=== PATIENT | female | born 1965 | race Caucasian/White ===

== ENCOUNTER 2020-04-04 06:33 | Inpatient (IN) | payer OTHER ==
[~2020-04-04] VITALS: Ht 162.6 cm; Wt 83.0 kg
[2020-04-04 07:08] VITALS: BP 148/94
[2020-04-04] MEDS ORDERED: PLAVIX 75 MG TA75 MG PO (07:29)
[2020-04-04] MEDS ORDERED: ASA81BEC PO (07:29)
[2020-04-04] MEDS ORDERED: FISH OIL 1,001000 M2 PO (07:30)
[2020-04-04] MEDS ORDERED: KLOR-CON 10 ER10 MEQ PO (07:30)
[2020-04-04] MEDS ORDERED: MAGNESIUM250 M1 PO (07:30)
[2020-04-04] MEDS ORDERED: VITAMIN D310 MC2 PO (07:31)
[2020-04-04 07:41] LABS: HEMATOCRIT 43.9 % (37.0-47.0); HEMOGLOBIN 14.2 gm/dL (12.0-15.0); MCH 28.4 pg (26.0-34.0); MCHC 32.4 g/dL (28.0-37.0); MCV 87.7 fL (80.0-100.0); RBC 5.01 mil/uL (4.20-5.00); RDW 14.1 % (10.5-14.5); WBC 5.3 thou/uL (4.0-11.0)
[2020-04-04 07:48] LABS: CALCIUM 9.8 mg/dL (8.5-10.1); CREATININE 0.8 mg/dL (0.6-1.0); POTASSIUM 4.3 mmol/L (3.5-5.1)
[2020-04-04 10:32] LABS: CHOLESTEROL 265 mg/dL (<200); HDL CHOLESTEROL 69 mg/dL (>40); LDL CHOLESTEROL 184 mg/dL (<100); TC:HDL 3.8 Ratio (Not establshd); TRIGLYCERIDE 60 mg/dL (<150); VLDL 12 mg/dL (<40)
--- NOTE | 2020-04-04 10:57 | 2DMMODE ---
[facility] [place] [address] 2 D/M-MODE ECHOCARDIOGRAM Name: KEYSHAWN MADSEN Room #: REG ZOË BakerShanna#: [id number] Admission: 04/04/20 Attend Phys: Eros Canchola MD, Discharge: Date of : 61 Report #: [id number] THIS REPORT FOR: cc: Roland Rodriguez James DO Lammoglia, Francisco J. MD ~ APPROVED REPORT Study performed: 04/04/2020 10:27:05 EXAM: Comprehensive 2D, Doppler, and color-flow Echocardiogram Patient Location: CV Holding Status: routine BSA: 1.88 HR: 70 bpm BP: 148/94 mmHg Rhythm: NSR Other Information Study Quality: Adequate/flat on back. Technically limited study due to inability to position patient. Indications Pre-Op CABG. Hx: CVA, PVD, HTN, HLP, Tob. 2D Dimensions RVDd: 29.38 mm IVSd: 13.00 (7-11mm) LVOT Diam: 18.85 (18-24mm) LVDd: 32.42 mm PWd: 9.40 (7-11mm) LVDs: 24.84 (25-40mm) Volumes Left Atrial Volume (Systole) Single Plane 4CH: 32.20 mL Single Plane 2CH: 38.43 mL LA ESV Index: 20.00 mL/m2 Aortic Valve AoV Peak Satya.: 1.23 m/s AO Peak Gr.: 6.07 mmHg LVOT Max P.48 mmHg LVOT Max V: 0.93 m/s [facility] [address] [address] 2 D/M-MODE ECHOCARDIOGRAM Name: KEYSHAWN MADSEN Room #: REG Shelley#: [id number] Admission: 04/04/20 Attend Phys: Eros Canchola, Discharge: Date of : 61 Report #: [id number] KRAIG Vmax: 2.11 cm2 Mitral Valve E/A Ratio: 1.1 MV Decel. Time: 140.51 ms MV E Max Satya.: 1.08 m/s MV A Satya.: 0.99 m/s MV PHT: 40.75 ms IVRT: 76.12 ms Pulmonary Valve PV Peak Satya.: 0.67 m/s PV Peak Gr.: 1.81 mmHg Pulmonary Vein P Vein S: 0.41 m/s P Vein D: 0.30 m/s P Vein S/D Ratio: 1.37 Tricuspid Valve RAP Estimate: 5.00 mmHg Left Ventricle The left ventricle is normal size. Mild basal septal hypertrophy is present. Left ventricular systolic function is normal. LVEF is 55%. Moderate diastolic dysfunction is present. Right Ventricle The right ventricle is normal size. The right ventricular systolic function is normal. Atria The left atrium size is normal. The right atrium size is normal. Aortic Valve Aortic valve leaflets are mildly calcified. No aortic regurgitation is present. There is no aortic valvular stenosis. Mitral Valve The mitral valve is normal in structure. Mild mitral regurgitation. No evidence of mitral valve stenosis. Tricuspid Valve The tricuspid valve is normal in structure. There is no tricuspid valve regurgitation noted. Unable to assess PA pressure. [facility] [address] [place] [address] 2 D/M-MODE ECHOCARDIOGRAM Name: KEYSHAWN MADSEN Room #: [facility] Shelley#: [id number] Admission: 04/04/20 Attend Phys: Eros Canchola, Discharge: Date of : 61 Report #: [id number] Pulmonic Valve Pulmonic valve is not well visualized. Great Vessels The aortic root is normal in size. IVC is normal in size and collapses >50% with inspiration. Pericardium There is no pericardial effusion. <Conclusion> The left ventricle is normal size. LVEF is 55%. Aortic valve leaflets are mildly calcified. The mitral valve is normal in structure. Mild mitral regurgitation. The tricuspid valve is normal in structure. Pulmonic valve is not well visualized. There is no pericardial effusion. <ELECTRONICALLY SIGNED> By: Gerard Duffy MD 04/04/20 1056 1056 1056 Gerard Duffy MD /INF
[2020-04-04 11:05] VITALS: BP 146/96
[2020-04-04 16:25] LABS: ABSOLUTE NEUTROPHILS 3.6 thou/uL (1.4-8.2); BASOPHILS 0.4 % (0.0-2.0); EOSINOPHILS 1.8 % (0.0-3.0); HEMATOCRIT 45.2 % (37.0-47.0); HEMOGLOBIN 14.8 gm/dL (12.0-15.0); MCH 28.5 pg (26.0-34.0); MCHC 32.7 g/dL (28.0-37.0); MCV 87.3 fL (80.0-100.0); MONOCYTES 9.4 % (1.0-8.0); PLATELET COUNT 219 thou/uL (150-400); POLYS 58.4 % (36.0-66.0); RBC 5.18 mil/uL (4.20-5.00); WBC 6.1 thou/uL (4.0-11.0)
[2020-04-04 16:32] LABS: CALCIUM 9.8 mg/dL (8.5-10.1); CREATININE 0.7 mg/dL (0.6-1.0); POTASSIUM 4.3 mmol/L (3.5-5.1)
[2020-04-04 16:38] LABS: TOTAL BILIRUBIN 0.5 mg/dL (0.2-1.0); TOTAL PROTEIN 7.6 g/dL (6.4-8.2)
[2020-04-04 16:49] LABS: APTT 24.8 Seconds (24.5-32.8); PROTIME 10.2 Seconds (9.3-11.4)
--- NOTE | 2020-04-04 18:12 | NUR ---
10:00 ON UNIT POST CATH PROCEDURE, ADMISSION PAPERWORK COMPLETED AND LOGN DUSCUSSION ON LAYING FLAT UNTIL OFF BEDREST AT 12:30 THIS AFTERNNON. PT. DENIES ANY CHEST PAIN, NO SOB. RIGHT LEG IS WARM AND PINK, NO MOTTLING NOTED BILATERALLY. PEDAL PULSES ARE 2+ ON BOTH LOWER EXTREMETIES. CANDI AT BEDSIDE, MANY QUESITONS ANSWERED PERTAINING TO CABG PROCEDURE, EXPECTATIONS AND PRE-OP ORDERS.
--- NOTE | 2020-04-04 18:16 | NUR ---
12:30 OFF BEDREST AT THIS TIME. DENIES ANY DISCOMFORT. RIGHT GROIN SITE IS C,D,I , NO HEMATOMA. SOFT TISSUE AT SITE AND NO OOZING ON GUAZE. VERY PLEASANT DEMEANOR, CLAMER FROM WHAT WAS REPORTED IN PRE-OP WAS GIVEN VALIUM FOR ANXXIETY. NSR, NO ECTOPY. DENIES SOB, ON ROOM AIR.
--- NOTE | 2020-04-04 18:18 | NUR ---
14:00 OFF UNIT FOR ELOY SOUND PROCEDURE AT THIS TIME, IN ROOM. MULTIPLE LAB DRAWS AND PRE-OP CONVERSATIONS PRIOR. NSR, NO ECTOPY.
[2020-04-04 20:30] VITALS: BP 129/88
[2020-04-05 05:00] VITALS: BP 133/84
--- NOTE | 2020-04-05 05:07 | NUR ---
ASSUMED CARE OF THE PATIENT AT 1900; AOX4/BATHROOM PRIVILEGES; SR/SB ON THE MONITOR; VSS/ASSESSMENTS CHARTED; SLEEPING MED REQUESTED AND ADMINISTERED PER PROVIDER ORDER; PLAN IS FOR PATIENT TO REMAIN FOR OBSERVATION AND SCHEDULED OPEN HEART SX FOR 04/08/20; WILL CONTINUE TO MONITOR.
[2020-04-05 07:25] VITALS: BP 149/95
[2020-04-05 11:15] VITALS: BP 142/96
--- NOTE | 2020-04-05 12:43 | HC ---
[facility] [place] [address] CONSULTATION Name: KEYSHAWN MADSEN Room #: 200-I [facility] ZOË PerryShannaDulce MariaShanna#: [id number] Admission: 04/04/20 Attend Phys: Eros Canchola MD, Discharge: Date of : 61 Report #: [id number] THIS REPORT FOR: cc: Roland Rodriguez James DO Forman, John M. MD ~ DATE OF SERVICE: 04/04/2020 We were asked by Dr. Canchola to see the patient. HISTORY OF PRESENT ILLNESS: The patient is a 54-year-old with coronary artery disease. 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 The patient was found to have important carotid artery disease at the time and had a carotid artery stent at [facility]. The patient was started on Plavix. The peripheral vascular disease led to a nuclear stress test and this was done by Dr. Davies at [facility] on 03/21/2020. Myocardial perfusion imaging showed a moderate-sized reversible defect in the proximal to distal inferior wall and septum extending to the apex with no evidence of prior myocardial infarction. Left ventricular systolic function was estimated to be 67% by the study. Cardiac catheterization was done today and this shows severe 3-vessel coronary artery disease including 90% left main, 90% LAD, circumflex disease of 90%, and right coronary occlusion. Mild hypokinetic function was noted on the ventriculogram. PAST MEDICAL HISTORY: Significant for dyslipidemia and hypertension. The patient denies diabetes mellitus. FAMILY HISTORY: Positive for coronary artery disease. Interestingly, I performed bypass surgery on the patient's [id number] (the patient's 's father). SOCIAL HISTORY: Positive for tobacco use. The patient is a former smoker who started at age 16. REVIEW OF SYSTEMS: GENERAL: The patient denies fever, chills, weight change. 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 HEENT: Denies headache, hearing changes, sinus problems. RESPIRATORY: Denies specific shortness of breath or cough. CARDIAC: Exercise is limited. The patient has a low exercise tolerance, but this is not new per se. Denies angina or palpitations. GASTROINTESTINAL: Denies nausea, vomiting, blood in stool. GENITOURINARY: Denies urgency, frequency, blood in urine. [facility] [address] [place] [address] CONSULTATION Name: KEYSHAWN MADSEN Room #: 200-I [facility] ZOË Rosa#: [id number] Admission: 04/04/20 Attend Phys: Eros Canchola MD, Discharge: Date of : 61 Report #: [id number] MUSCULOSKELETAL: Denies bone or joint pain. SKIN: Denies rash or infection. NEUROLOGIC: We note the stroke with loss of vision, but denies other motor or sensory dysfunction. ENDOCRINE: Denies goiter or tremor. HEMATOLOGIC: Denies bruisability or bleeding. MEDICATIONS: The patient takes aspirin, Plavix, potassium, vitamin D, fish oil. ALLERGIES: None known. PHYSICAL EXAMINATION: CONSTITUTIONAL: The patient is lying in bed post-cardiac cath, seems comfortable. VITAL SIGNS: Heart rate 70, respiratory rate 19, blood pressure 148/94, temperature 97.7, O2 sat 98% on room air. HEENT: No scleral icterus, no arcus. NECK: No mass. I hear no bruit. CHEST: Clear to auscultation. HEART: Rhythm regular. No murmurs audible. ABDOMEN: Soft, no mass. EXTREMITIES: No clubbing, cyanosis or edema, 2+ right popliteal and dorsalis pedis pulse, I do not feel left popliteal or dorsalis pedis pulses. SKIN: No rash or infection. MUSCULOSKELETAL: No bone or joint asymmetry or deformity. NEUROLOGIC: No motor or sensory dysfunction. PSYCHIATRIC: Shows insight into problem and is oriented x 3 and emotion is appropriate. I reviewed the cardiac anatomy with the patient in view of her presentation. We have recommended coronary artery bypass surgery for the multiplicity and location of blockages. Risks in details, options and alternatives were discussed. These include, but are not limited to bleeding, infection, anesthesia risks, heart and lung problems, stroke and . The patient understands all of this and wishes to proceed. We will try to arrange surgery as an inpatient. Plavix will be stopped and we will check for P2Y12 and discuss starting IV heparin with Dr. Canchola. We will also do the COVID and MRSA testing. Thank you for the consult. <ELECTRONICALLY SIGNED> By: Raulito Samuels MD 04/05/20 1243 1032 1300 Raulito Samuels MD /nt
--- NOTE | 2020-04-05 12:59 | CATHLAB ---
[facility] [place] [address] INVASIVE PROCEDURE REPORT Name: KEYSHAWN MADSEN Room #: 200-I REG ZOË Rosa#: [id number] Admission: 04/04/20 Attend Phys: Eros Canchola MD, Discharge: Date of : 61 Report #: [id number] THIS REPORT FOR: cc: Roland Rodriguez James DO Mancuso, Gerald M. MD [facility] ~ APPROVED REPORT Study performed: 04/04/2020 07:54:46 Patient Details Patient Status: Out-Patient Room #: The patient is a 54 year-old female Event Personnel Eros Canchola Health Technician, Rosa Lizama RN RN, Jacques Tamayo RTR ScrubJarett Sherra RTR Monitor Procedures Performed Art Access - R femoral artery* Left Heart Cath w/or w/o Coronaries [id number] [facility] Aortogram Abdominal Peripheral Angio 382721 Renal Bilateral Peripheral Angiography 0523365 CVRENALBIL 00076 Initial Mod Sed Same Phys/QHP Gr5y 377974 38500 Mod Sed Same Phys/QHP Ea 431710 Hemostasis w/ Mynx Indication Chest pain Procedure Narrative The Right Groin^ was infiltrated with 1% Lidocaine subcutaneous anesthesia. A PINNACLE 6FR Sheath #[id number] sheath was inserted into the RFA^. Coronary angiography was performed using coronary diagnostic catheters. The right coronary system was accessed and visualized with a JR4 catheter. The left coronary system was accessed and visualized with a JL4 catheter. The left ventricle was accessed and visualized with a PIGTAIL catheter. Left ventriculogram was performed in 30 degree projection. An aortogram of the abdominal aorta was performed. Pre-demployment femoral angiogram was performed . Closure device was deployed with a 6 Fr MYNXGRIP 6/7F #[id number]. The patient tolerated the procedure well and there were no complications associated with the procedure. There was no hematoma. Intraoperative Conscious Sedation Sedation start time: 911 Case end Time: 942 [facility] [address] [place] [address] INVASIVE PROCEDURE REPORT Name: KEYSHAWN MADSEN Room #: 200-I [facility]..#: [id number] Admission: 04/04/20 Attend Phys: Eros Canchola, Discharge: Date of : 61 Report #: [id number] Fentanyl 50 mcg Versed 1 mg Fluoro Time: 599.00 minutes Dose: DAP 4845.00 cGycm2 599 mGy Contrast Type and Amount: Omnipaque 125 ml Hemodynamics The aortic pressure is 147/76 mmHg with a mean of 107 mmHg. The left ventricular pressure is 155/8 mmHg with a mean of mmHg. The left ventricular end diastolic pressure is 19 mmHg. Conclusion #1. High-grade 90% distal left main lesion at the bifurcation of LAD and circumflex. 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 Preserved distal two thirds of this vessel which wraps the apex. Proximal calcification also noted. Diagonal branch is moderately large and also free of disease after this takeoff. #3 circumflex OM high rising ramus branch long 80% lesion moderate area of distribution and then a smaller circumflex which high-grade proximal disease. #4 totaled mid RCA lesion there is extensive left to right collateralization of the PDA. This was anatomically dominant vessel. #5 selective left renal artery injection mild irregularity 20% #6 selective right renal artery has an eccentric lesion in the 70 to 80% range with a 40 mm gradient upon pullback. Will follow this vessel noninvasively and also for clinical evidence of labile hypertension and/or renal insufficiency. #7 normal left ventricular size there is subtle anterior lateral wall leg EF is 50% range. No akinetic segments are noted. Recommendations and plan: Continue aggressive risk factor modification. Patient will transfer to CCU stable pain-free. Will need cardiovascular surgery consult for revascularization. High-grade complex anatomy as noted above. <ELECTRONICALLY SIGNED> By: Eros Canchola MD, FACC 04/05/20 1259 Eros Canchola MD, FACC /INF
[2020-04-05 14:17] LABS: URINE BILIRUBIN NEGATIVE (Negative); URINE BLOOD NEGATIVE (Negative); URINE CLARITY CLEAR; URINE COLOR YELLOW; URINE GLUCOSE-RANDOM* NEGATIVE (Negative); URINE KETONES NEGATIVE (Negative); URINE LEUKOCYTES-REFLEX NEGATIVE (Negative); URINE NITRITE-REFLEX NEGATIVE (Negative); URINE PROTEIN (DIPSTICK) NEGATIVE (Negative); URINE SPECIFIC GRAVITY 1.025 (1.005-1.035); URINE UROBILINOGEN 0.2 E.U./dl (0.2-1.0)
[2020-04-05 15:40] VITALS: BP 128/87
--- NOTE | 2020-04-05 18:21 | NUR ---
PT'S AT SIDE MAJORITY OF VISITING HOURS. DISCUSSED UPCOMING SURGERY, PT VOICED UNDERSTANDING AND SIGNED CONSENTS, WILL DO MRSA AND COVID TESTS TOMORROW SO THEY WILL BE DONE IN 48 HR RANGE BEFORE SURGERY. PT DENIED PAIN ALL DAY, TOOK OWN SHOWER, HAD A BM, WILL MONITOR
[2020-04-05 19:40] VITALS: BP 121/81
[2020-04-06] VITALS (7 sets, daily range): BP systolic 107–149; BP diastolic 50–88
--- NOTE | 2020-04-06 10:41 | NUR ---
PT UP AND RESTING IN CHAIR, DR SMITH IN TO SEE HER EARLIER, COVID AND MRSA SWABS SENT, C/O BACK AND LEG PAIN FROM LYING UNCOMFORTABLY IN THE BED ALL NIGHT. DR HENDERSON GAVE ORDERS FOR PRN PAIN MED AND SLEEPING PILL. PT TOOK PAIN MED, WILL MONITOR.
--- NOTE | 2020-04-06 14:42 | NUR ---
PT'S COVID TEST RETURNED POSITIVE, PT ASYMPTOMATIC, STATED THAT SHE WAS COVID POSITIVE ON Nov. DR HENDERSON AWARE, HAVE PAGED SMITH TO LET HIM KNOW AND SEE IF HE WANTS TO CONSULT ID OR NOT.
--- NOTE | 2020-04-06 15:23 | NUR ---
SPOKE WITH DR SMITH, HE ASKED ME TO CALL MARTHA LANGSTON FOR HER OPINION. NO RESPONSE TO VOICEMAIL I LEFT FOR HER. I PAGED DR GARCIA, HE SAID THERE IS NO REASON TO RETEST IN HIS OPINION, ASSUMES SHE IS NOT TRANSMITTING AT THIS TIME WITH NO SYMPTOMS SINCE SHE WAS POSITIVE ON November, DR SMITH AWARE OF HIS RECOMMENDATION.
[2020-04-06 21:24] LABS: GLYCOHEMOGLOBIN (HGB A1C) 5.3 % (4.8-5.6)
[2020-04-07] VITALS (8 sets, daily range): BP systolic 110–152; BP diastolic 46–98
--- NOTE | 2020-04-07 05:58 | NUR ---
ASSUME CARE 1900. PT/VITAl STABLE. INTERMITTENT BACK PAIN INDICATED WITH MODERATE RELIEF FROM IBUPROFEN. UP AD BRIDGER. ASSESSMENT CHARTED. SR ON MONITOR. PROGRESSING WELL WITH POC. PLAN IS CABG ON TUESDAY. WILL CONTINUE TO MONITOR AND FOLLOW WITH POC
--- NOTE | 2020-04-07 12:32 | NUR ---
REPORT CALED FOR PAOLO GUSTAFSON ON THE UNIT. PT. RESTING EYES CLOSED NO CHANGES.
--- NOTE | 2020-04-07 13:04 | NUR ---
met with patient who admits from home. She lives in [facility]. 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. 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 She has spouse at home with can assist at dc. All needs on one level in home. She has 3 steps to front door. CABG in am. casemgt following for dc needs.
[2020-04-08] VITALS (16 sets, daily range): BP systolic 100–132; BP diastolic 62–87
--- NOTE | 2020-04-08 05:16 | NUR ---
SLEPT PART OF SHIFT. UP AD BRIDGER IN ROOM. SHOWER DONE PM AND THIS AM. TELEMETRY LEADS ON BACK. BELONGINGS COLLECTED. AWAITING [facility] THIS AM. CONTINUE TO ASSES.
--- NOTE | 2020-04-08 06:36 | NUR ---
0625 TO OR IN WHEELCHAIR, WITH MASK ON AND SCD HOSE. BELONGINGS TAKEN TO ICU AND PLACED IN STORAGE ROOM WITH ID TAG. ICU CHARGE PROSPER ROY NOTIFIED OF PLACEMENT OF BELONGINGS.
[2020-04-08 12:49] LABS: MCH 28.6 pg (26.0-34.0); MCHC 33.3 g/dL (28.0-37.0); MCV 85.9 fL (80.0-100.0); RBC 2.87 mil/uL (4.20-5.00); RDW 13.5 % (10.5-14.5); WBC 9.3 thou/uL (4.0-11.0)
[2020-04-08 12:52] LABS: HEMATOCRIT 24.6 % (37.0-47.0); HEMOGLOBIN 8.2 gm/dL (12.0-15.0)
[2020-04-08 13:04] LABS: APTT 25.2 Seconds (24.5-32.8); INR 1.4; PROTIME 14.1 Seconds (9.3-11.4)
[2020-04-08 13:05] LABS: FIBRINOGEN 166.2 mg/dL (210-360)
[2020-04-08 13:37] LABS: POC BE -3 mmol/L (-2.0 to +3.0); POC CA IONIZED 4.1 mg/dL (4.5-5.3); POC GLUCOSE 143 mg/dL (70-99); POC HCO3 22.3 mmol/L (22.0-26.0); POC HEMOGLOBIN 9.5 g/dL (12.0-15.0); POC POTASSIUM 4.3 mmol/L (3.5-5.1); POC SODIUM 137 mmol/L (136-145); POC pCO2 39.3 mmHg (35.0-45.0); POC pH 7.361 (7.360-7.450)
[2020-04-08 13:38] LABS: POC BE -3 mmol/L (-2.0 to +3.0); POC CA IONIZED 4.6 mg/dL (4.5-5.3); POC GLUCOSE 147 mg/dL (70-99); POC HCO3 22.6 mmol/L (22.0-26.0); POC HEMOGLOBIN 9.9 g/dL (12.0-15.0); POC POTASSIUM 3.7 mmol/L (3.5-5.1); POC SODIUM 143 mmol/L (136-145); POC pCO2 38.1 mmHg (35.0-45.0); POC pH 7.381 (7.360-7.450)
[2020-04-08 13:38] LABS: POC BE -1 mmol/L (-2.0 to +3.0); POC CA IONIZED 4.3 mg/dL (4.5-5.3); POC GLUCOSE 167 mg/dL (70-99); POC HCO3 24.6 mmol/L (22.0-26.0); POC HEMOGLOBIN 8.5 g/dL (12.0-15.0); POC POTASSIUM 4.1 mmol/L (3.5-5.1); POC SODIUM 137 mmol/L (136-145); POC pCO2 42.4 mmHg (35.0-45.0); POC pH 7.372 (7.360-7.450)
[2020-04-08 13:38] LABS: POC BE -3 mmol/L (-2.0 to +3.0); POC CA IONIZED 4.9 mg/dL (4.5-5.3); POC GLUCOSE 147 mg/dL (70-99); POC HCO3 22.8 mmol/L (22.0-26.0); POC HEMOGLOBIN 12.9 g/dL (12.0-15.0); POC POTASSIUM 3.9 mmol/L (3.5-5.1); POC SODIUM 139 mmol/L (136-145); POC pCO2 41.1 mmHg (35.0-45.0); POC pH 7.353 (7.360-7.450)
[2020-04-08 13:38] LABS: POC BE 0 mmol/L (-2.0 to +3.0); POC CA IONIZED 4.9 mg/dL (4.5-5.3); POC GLUCOSE 146 mg/dL (70-99); POC HCO3 24.3 mmol/L (22.0-26.0); POC HEMOGLOBIN 8.8 g/dL (12.0-15.0); POC POTASSIUM 3.6 mmol/L (3.5-5.1); POC SODIUM 144 mmol/L (136-145); POC pH 7.414 (7.360-7.450)
[2020-04-08 13:38] LABS: POC BE 0 mmol/L (-2.0 to +3.0); POC GLUCOSE 114 mg/dL (70-99); POC HCO3 24.2 mmol/L (22.0-26.0); POC HEMOGLOBIN 12.9 g/dL (12.0-15.0); POC POTASSIUM 3.9 mmol/L (3.5-5.1); POC SODIUM 139 mmol/L (136-145); POC pCO2 37.4 mmHg (35.0-45.0); POC pH 7.419 (7.360-7.450)
[2020-04-08 13:38] LABS: POC BE 1 mmol/L (-2.0 to +3.0); POC CA IONIZED 4.4 mg/dL (4.5-5.3); POC GLUCOSE 150 mg/dL (70-99); POC HCO3 26.6 mmol/L (22.0-26.0); POC HEMOGLOBIN 8.8 g/dL (12.0-15.0); POC POTASSIUM 4.7 mmol/L (3.5-5.1); POC SODIUM 142 mmol/L (136-145); POC pCO2 46.3 mmHg (35.0-45.0); POC pH 7.367 (7.360-7.450)
--- NOTE | 2020-04-08 14:00 | NUR ---
PT ADMITTED TO THE ICU ACC BY THAIS AND THE OR TEAM. DR HOGAN AND KAMALA HERE. PLACED ON MONITOR, SHOWS NSR. SAT'S OKAY, ALL WAVEFORMS WNL. SVO2 75. PT ON 15 MCG'S OF PROPOFOL AND LIGHTLY SEDATED OPENING HER EYES SLIGHLY. NO PRESSORS. ALL DRESSINGS INTACT AND MCT AND PCT INTACT. RT IJ TRANSPARENT DRESSING WITH A SLIGHT AMT OF BLOOD. HEAT SOURCE ON. PT RESTING. PACER OFF BUT ATTACHED. WILL CONTINUE TO MONITOR.
[2020-04-08 14:26] LABS: HEMATOCRIT 30.4 % (37.0-47.0); HEMOGLOBIN 9.9 gm/dL (12.0-15.0); MCH 28.3 pg (26.0-34.0); MCHC 32.8 g/dL (28.0-37.0); MCV 86.4 fL (80.0-100.0); RBC 3.52 mil/uL (4.20-5.00); RDW 13.5 % (10.5-14.5); WBC 11.5 thou/uL (4.0-11.0)
[2020-04-08 14:33] LABS: BE(vivo) -4.7 mmol/L (-2 to +3); HCO3 20.4 mmol/L (22.0-26.0); PCO2 37.4 mmHg (35.0-45.0); PO2 178.5 mmHg (80.0-100.0); pH 7.354 (7.360-7.450); sO2 99.2 % (92.0-98.0)
[2020-04-08 14:34] LABS: CALCIUM 8.3 mg/dL (8.5-10.1); CREATININE 0.5 mg/dL (0.6-1.0); POTASSIUM 3.8 mmol/L (3.5-5.1)
[2020-04-08 14:35] LABS: MAGNESIUM 2.1 mg/dL (1.8-2.4)
[2020-04-08 14:43] LABS: APTT 24.6 Seconds (24.5-32.8); INR 1.2; PROTIME 11.8 Seconds (9.3-11.4)
--- NOTE | 2020-04-08 15:00 | NUR ---
ALLOWED TO COME IN TO SEE , EXPLAINED ALL THE TUEBES AND VENT TO HIM BUT HE STATES THAT I HAVE BEEN THUR THIS BEFORE, MY FATHER HAD SURGERY SO I KNOW ABOUT THIS.
--- NOTE | 2020-04-08 15:45 | NUR ---
RT CALLED TO DO WEANING TRIAL ON PT. CRISTAL RT HERE DID ABG AND WEANING PARAMETERS. PT DID VERY GOOD WITH BOTH 20 MINUTE WEANING TRIAL AND PARAMETERS ABG DONE, PLAN IS TO EXTUBATE THE PT. HOB ELEVATED PROCEDURE EXPLAINED TO THE PT. 1620 PT EXTUBATED AND FACE SHIELD PLACED SATS 100% GOOD BREATHE SOUNDS PATY. 1645 AT THE BEDSIDE UPDATE GIVEN.
--- NOTE | 2020-04-08 16:07 | NUR ---
allison spbon rn re: consult for d/c planning. per RN, pt has been out of surgery for lina 2 hrs and will be here for another day or two.
[2020-04-08 16:17] LABS: BE(vivo) -5.8 mmol/L (-2 to +3); HCO3 19.1 mmol/L (22.0-26.0); PCO2 35.8 mmHg (35.0-45.0); PO2 130.1 mmHg (80.0-100.0); pH 7.346 (7.360-7.450); sO2 98.5 % (92.0-98.0)
--- NOTE | 2020-04-08 16:27 | EKG ---
[address] [place] [address] ELECTROCARDIOGRAM REPORT Name: TENAKEYSHAWN SELF Room #: 249-P ADM IN M.R.#: [id number] Admission: 04/05/20 Attend Phys: Eros Canchola MD, Discharge: Date of : 61 Report #: [id number] [facility] Test Date: 2020-04-08 Test Time: 15:43:05 Pat Name: KEYSHAWN MADSEN Department: Room: 249 Gender: F Loan Broker: Dulce Maria PANIAGUA : 1965 Requested By: Quinton Valentine Order Number: [id number] MD: Stefan Novak Measurements Intervals [place] Rate: 97 P: 54 OR: 189 QRS: 7 QRSD: 80 T: 93 QT: 399 QTc: 507 Interpretive Statements Sinus rhythm Borderline low voltage, extremity leads Abnormal R-wave progression, early transition Nonspecific T abnormalities, lateral leads Borderline prolonged QT interval No previous ECG available for comparison Electronically Signed On 04-08-2020 16:27:34 FAST FOOD SHIFT LEAD by Stefan Novak [email or web address] <ELECTRONICALLY SIGNED> By: Stefan Novak MD, [facility] 04/08/20 1627 1543 1543 Stefan Novak MD, [facility] /EPI
--- NOTE | 2020-04-08 16:30 | NUR ---
PT MOANING STATING MY RIB IS STICKING OUTIN MY BACK PT TURNED AND UNABLE TO FEEL AND RIB. POSS. THE REASON IS POSS THE PT LYING ON THE TABLE FOR 5-6 HOURS. pT WAS GIVEN A DOSE OF fENTANYL AND IT DID SEEM TO CALM HER. VSS WITH THE PAIN AND FENT.
--- NOTE | 2020-04-08 16:30 | NUR ---
DR HOGAN HERE AWARE OF EXTUBATION.
[2020-04-09] VITALS (12 sets, daily range): BP systolic 98–123; BP diastolic 62–79
[2020-04-09 05:11] LABS: HEMATOCRIT 32.8 % (37.0-47.0); HEMOGLOBIN 10.8 gm/dL (12.0-15.0); MCH 28.5 pg (26.0-34.0); MCHC 32.8 g/dL (28.0-37.0); MCV 86.8 fL (80.0-100.0); RBC 3.78 mil/uL (4.20-5.00); RDW 14.1 % (10.5-14.5); WBC 8.8 thou/uL (4.0-11.0)
[2020-04-09 05:14] LABS: CALCIUM 8.7 mg/dL (8.5-10.1); CREATININE 0.5 mg/dL (0.6-1.0); MAGNESIUM 2.1 mg/dL (1.8-2.4); POTASSIUM 3.6 mmol/L (3.5-5.1)
--- NOTE | 2020-04-09 07:30 | EKG ---
[place] [address] [facility] [place] [address] ELECTROCARDIOGRAM REPORT Name: KEYSHAWN MADSEN Room #: 249-P ADM IN M.R.#: [id number] Admission: 04/05/20 Attend Phys: Eros Canchola MD, Discharge: Date of : 61 Report #: [id number] [facility] Test Date: 2020-04-09 Test Time: 07:24:10 Pat Name: KEYSHAWN MADSEN Department: Room: 249 P Gender: F Rewinder: DAVID : 1965 Requested By: Quinton Valentine Order Number: [id number] MD: Joey Lopez Measurements Intervals [place] Rate: 82 P: 20 [place]: 162 QRS: -26 QRSD: 69 T: 88 QT: 415 QTc: 485 Interpretive Statements Sinus rhythm Abnormal R-wave progression, early transition Inferior infarct, old Minimal ST elevation, consider pericarditis T wave abnormality, consider lateral ischemia Baseline wander in lead(s) V4 Compared to ECG 04/08/2020 15:43:05 Myocardial infarct finding now present ST (T wave) deviation now present Electronically Signed On 04-09-2020 7:30:29 PHYSICIST [employer] by Joey Lopez [email or web address] <ELECTRONICALLY SIGNED> By: Joey Lopez MD, FACC 04/09/20729 3 3 Joey Lopez MD, FACC /EPI
--- NOTE | 2020-04-09 08:23 | NUR ---
Nutrition: Pt S/P CABG POD 1. Consult received. Followup when out of ICU/closer to D/C.
--- NOTE | 2020-04-09 12:03 | NUR ---
ALERT AND ORIENTED AND VITALS STABLE. MEDICATED FOR PAIN AND NAUSEA WITH PRN MEDS. UP TO THE CHAIR AND WORKED WITH PT AND OT AND TOLERATED WELL. STARTED ON DIET BUT POOR APPETITE NOTED. FAMILIA AND MS Paulino DC'D PER ORDER AND PACER WIRES CAPPED. ALE WRAPPED REMOVED FROM LLE HARVEST SITE AND SCD APPLIED. PROGRESSING WELL TOWARDS POC GOALS.
--- NOTE | 2020-04-09 19:18 | NUR ---
PT. ARRIVED AT FLOOR AROUND 1600; PT. AOX4; C/O PAIN OVER CHEST; 09/25; ASKED IF NEED PT. MEDICATION; REFUSED IT; EDUCATED ABOUT PAIN MANAGEMENT; ST. UNDERSTANDING; REQUESTED PRN PAIN MEDICATION; C/O NAUSEA WITH PAIN MEDICATION; PRN ZOFRAN GIVEN; VS WNL; SR ON THE MONITOR; L. SIDE CT TO SUCTION; -20; DRESSING INTACT; REINFORCE IT; EDUCATED ABOUT FALL PRECAUTIONS; ST. UNDERSTANDING; IS REACH TO 750; EDUCATED ABOUT THE IMPORTANCE OF DRINKING WATER AND GETTING UP TO CHAIR DURING MEALS; ST. UNDERSTANDING; PAIN REASSESSMENT PT. RESTING WITH EYES CLOSED; POOR APPETITE; ENCOURAGE TO DRINK ENSURANCE; ASSESSMENT CHARGED; FOLLOWING POC; PASSED ON REPORT;
[2020-04-10] VITALS (8 sets, daily range): BP systolic 85–126; BP diastolic 52–74
--- NOTE | 2020-04-10 03:25 | NUR ---
PT POST OPERATIVE HEART CATH MARLA DRESTING DRY AND INTACT. LUNGS CLEAR TO DIMINISHED. ON ROOM AIR AT THIS TIME. COMPLAINS OF SOME SHOULDER AND STERNAL PAIN MEDICATED WITH PAIN MEDS ON JUN . THEN PT SLEEPING SO EFFECTIVELY WORKING. ENCOURAGE USE OF INCENTIVE SPIROMETERY AT BEDSIDE. CHEST TUBE IN PLACE TO SUCTION. PT HAS A MANN IN PLACE TOO. NO CONCERN NOTED AT THIS TIME PER NHUNG. CALL LIGHT WITHIN REACH IF NEEDS ASSISTANCE
[2020-04-10 05:17] LABS: HEMATOCRIT 29.3 % (37.0-47.0); HEMOGLOBIN 9.7 gm/dL (12.0-15.0); MCH 28.7 pg (26.0-34.0); MCHC 33.1 g/dL (28.0-37.0); MCV 86.9 fL (80.0-100.0); RBC 3.38 mil/uL (4.20-5.00); RDW 13.9 % (10.5-14.5)
[2020-04-10 05:20] LABS: CREATININE 0.8 mg/dL (0.6-1.0); POTASSIUM 3.9 mmol/L (3.5-5.1)
--- NOTE | 2020-04-10 08:59 | O ---
[facility] [place] [address] OPERATIVE REPORT Name: KEYSHAWN MADSEN Room #: 214-P ADM IN M.R.#: [id number] Admission: 04/05/20 Attend Phys: Eros Canchola MD, Discharge: Date of : 61 Report #: [id number] THIS REPORT FOR: cc: Roland Rodriguez James DO Forman,Raulito Huang MD ~ DATE OF SERVICE: 04/08/2020 PREOPERATIVE DIAGNOSIS: Coronary artery disease. POSTOPERATIVE DIAGNOSIS: Coronary artery disease. OPERATIONS: Coronary artery bypass x 4 including left internal mammary artery to left anterior descending artery, saphenous vein to diagonal and marginal and saphenous vein to posterior descending artery and endoscopic harvest, left greater saphenous vein. SURGEON: Raulito Samuels MD TRIMMER MACHINE: GLADYS Coulter ANESTHESIA: General. INDICATIONS: The patient is a 54-year-old seen for Dr. Canchola. The patient has severe 3-vessel coronary artery disease including left main, high-grade LAD, circumflex marginal and total right coronary stenoses. Left ventricular function mildly reduced. FINDINGS AND TECHNIQUE: After general anesthesia was established, saphenous vein was harvested using an endoscopic approach and prepared for use as a conduit. Exposure was obtained through median sternotomy. Left internal mammary artery was harvested. Pericardial well was made. Cannulation sutures were placed. Heparin was given. Aorta was cannulated. Right atrium was cannulated. Cardioplegia needle was positioned in the aortic root. Retrograde cardioplegic catheter was placed in the coronary sinus. Cardiopulmonary bypass was established. The aorta was cross clamped. Antegrade and retrograde cardioplegia were given. Ice was poured into the pericardial well. The heart was stopped. During electromechanical arrest, the distal anastomoses were performed and end-to-side anastomosis was made between the vein and the posterior descending artery. This was a small vessel, but there were 3 small vessels on the diaphragmatic surface and this was the largest of the three. Cold cardioplegia was given. A separate segment of vein was sewn in end-to-side fashion to the large intramyocardial first marginal. Cold cardioplegia was given. The same [facility] [address] [place] [address] OPERATIVE REPORT Name: KEYSHAWN MADSEN Room #: 214-P ADM IN M.R.#: [id number] Admission: 04/05/20 Attend Phys: Eros Canchola MD, Discharge: Date of : 61 Report #: [id number] segment of vein was sewn in [id number] fashion to the diagonal artery. Cold cardioplegia was given. Left internal mammary artery was sewn in end-to-side fashion to left anterior descending artery. Patency of this vessel was checked with the temperature technique and the Doppler. Cold cardioplegia was given. Two proximal anastomoses were performed. When these were complete, warm retrograde cardioplegia was given followed by warm continuous blood to the coronary sinus. When this infusion was complete, the crossclamp was removed, de-airing maneuvers were performed. The anastomoses were inspected and found to be satisfactory. As the patient warmed, nice cardiac activity resumed, chest tubes and pacing wires were placed, a marker was placed around the proximal anastomoses. When the patient was warmed, she was weaned from cardiopulmonary bypass. Venous cannula was removed. Protamine was given, the aortic cannula was removed. Flows were measured in the bypass grafts. When hemostasis was satisfactory, chest was irrigated with antibiotic solution and closed in the usual fashion. The patient was taken to the Intensive Care Unit in good condition having tolerated the procedure well. All counts reported as correct. <ELECTRONICALLY SIGNED> By: Raulito Samuels MD 04/10/20 [id number] Raulito Samuels MD /nt
--- NOTE | 2020-04-10 13:01 | NUR ---
Pt is progressing s/p cabg. Case discussed with CTS. Possible dc 2-3 days. Outpt f/u anticipated.
--- NOTE | 2020-04-10 19:53 | NUR ---
RECEIVED PT'S CARE AROUND 0720; PT. ON BED; SLEEP INTERRUPTED AT SHIFT CHANGED; AOX4; DURING AM ASSESSMENT C/O PAIN; PRN PAIN MEDCIATION GIVEN WITH AM MEDICATIONS; IJ AND CT D/C BY DARRELL MANN D/C AT 1240; PT. ABLE TO VOID AT 1815; EDUCATED ABOUT THE IMPORTANCE OF GETTING UP TO CHAIR; UP TO CHAIR DURING THE MORNING; WORKED WITH PT AND OT; TOLERATED WELL; DURING THE EVENING PT. AMBULATE AROUND THE UNIT ONE TIME; ABLE TO PASS FLATUS; IMPROVE APPETITE; SR ON THE MONITOR; ASSESSMENT CHARGED; FOLLOWING POC; PASSED ON REPORT;
--- NOTE | 2020-04-11 03:45 | NUR ---
Assumed pt care at 1900. Pt is alert and oriented. No sign of distress noted in pt. Pt is laying in bed, resting comfortably. Verbalized some discomfort. Assessment completed and documented. Fall precaution in place. Scheduled meds administered for pt. No acute events overnight. Continue to monitor. No further needs at this time.
[2020-04-11 05:23] VITALS: BP 112/59
[2020-04-11 07:57] VITALS: BP 95/65
[2020-04-11 11:57] VITALS: BP 100/62
[2020-04-11 15:38] VITALS: BP 83/55
[2020-04-11 15:41] VITALS: BP 96/58
[2020-04-11 19:12] VITALS: BP 108/69
[2020-04-12 02:35] VITALS: BP 100/56
[2020-04-12 03:28] LABS: HEMATOCRIT 28.1 % (37.0-47.0); HEMOGLOBIN 9.3 gm/dL (12.0-15.0); MCH 28.9 pg (26.0-34.0); MCHC 32.9 g/dL (28.0-37.0); MCV 87.9 fL (80.0-100.0); RBC 3.2 mil/uL (4.20-5.00); RDW 13.5 % (10.5-14.5); WBC 6.8 thou/uL (4.0-11.0)
[2020-04-12 03:35] LABS: CREATININE 0.6 mg/dL (0.6-1.0); POTASSIUM 3.6 mmol/L (3.5-5.1)
--- NOTE | 2020-04-12 07:55 | NUR ---
PATIENT SLEPT THROUGH SOME OF THE NIGHT. A&OX4. ASSESSMENTS CHARTED. MEDICATIONS GIVEN PER EMAR. PRN PAIN MEDICATIONS GIVEN FOR UPPER BACK PAIN AND DISCOMFORT. UP AD BRIDGER; STEADY GAIT. SR ON THE MONITOR. PROGRESSING TOWARDS DISCHARGE. CONTINUING TO ASSESS CLOSELY ACCORDING TO POC.
[2020-04-12 08:16] VITALS: BP 110/75
--- NOTE | 2020-04-12 11:18 | EKG ---
[address] [address] ELECTROCARDIOGRAM REPORT Name: TENAKEYSHAWN SAMSON Room #: 214- ADM IN M.R.#: [id number] Admission: 04/05/20 Attend Phys: Eros Canchola MD, Discharge: Date of : 61 Report #: [id number] [facility] Test Date: 2020-04-12 Test Time: 07:32:31 Pat Name: KEYSHAWN MADSNE Department: Room: 214 P Gender: F Photo Lab Technician: GET : 1965 Requested By: Quinton Valentine Order Number: [id number] MD: Stefan Novak Measurements Intervals [place] Rate: 82 P: 31 ND: 144 QRS: -26 QRSD: 83 T: 59 QT: 401 QTc: 469 Interpretive Statements Sinus rhythm Borderline left axis deviation Abnormal R-wave progression, early transition Compared to ECG 04/09/2020 07:24:10 Myocardial infarct finding no longer present ST (T wave) deviation no longer present T-wave abnormality no longer present Possible ischemia no longer present Electronically Signed On 04-12-2020 11:18:09 [employer] by Stefan Novak [email or web address] <ELECTRONICALLY SIGNED> By: Stefan Novak MD, [facility] 04/12/20 1118 [id number] 0732 Stefan Novak MD, [facility] /EPI
[2020-04-12 12:19] VITALS: BP 110/75
--- NOTE | 2020-04-12 13:16 | NUR ---
ASSUMED CARE AT SHIFT CHANGE, DISCHARGE AND MEDICATION INSTRUCTION GIVEN TO PATIENT AND SPOUSE. PATIENT DISCHARGED HOME.
[2020-04-14 09:02] LABS: POC BE -2 mmol/L (-2.0 to +3.0); POC CA IONIZED 4.5 mg/dL (4.5-5.3); POC GLUCOSE 175 mg/dL (70-99); POC HCO3 23.6 mmol/L (22.0-26.0); POC HEMOGLOBIN 9.5 g/dL (12.0-15.0); POC SODIUM 140 mmol/L (136-145); POC pCO2 45.2 mmHg (35.0-45.0); POC pH 7.325 (7.360-7.450)
== END 2020-04-12 13:00 | disposition home or self-care (01) | DRG 233 ==
LOC: CATH 06:33 → 2N 12:50 → CATH 12:51 → 2N 12:51 → TBA 04-05 09:19 → ICU 04-08 14:24 → 2N 04-09 15:35
PROVIDERS: Nurse Practitioner Adult Health; Physician Assistant; Surgery Vascular Surgery; ADMIT Internal Medicine Cardiovascular Disease; ATTEND Internal Medicine Cardiovascular Disease
PROC: B41J1ZZ Fluoroscopy of Other Lower Arteries using Low Osmolar Contrast (ICD-10-PCS; principal; 2020-04-05)
PROC: 4A023N7 Measurement of Cardiac Sampling and Pressure, Left Heart, Percutaneous Approach (ICD-10-PCS; principal; 2020-04-05)
PROC: B2151ZZ Fluoroscopy of Left Heart using Low Osmolar Contrast (ICD-10-PCS; principal; 2020-04-05)
PROC: B2111ZZ Fluoroscopy of Multiple Coronary Arteries using Low Osmolar Contrast (ICD-10-PCS; principal; 2020-04-05)
PROC: B4181ZZ Fluoroscopy of Bilateral Renal Arteries using Low Osmolar Contrast (ICD-10-PCS; principal; 2020-04-05)
PROC: B4101ZZ Fluoroscopy of Abdominal Aorta using Low Osmolar Contrast (ICD-10-PCS; principal; 2020-04-05)
PROC: 02HV33Z Insertion of Infusion Device into Superior Vena Cava, Percutaneous Approach (ICD-10-PCS; 2020-04-06)
PROC: 4A133B1 Monitoring of Arterial Pressure, Peripheral, Percutaneous Approach (ICD-10-PCS; 2020-04-08)
PROC: 021209W Bypass Coronary Artery, Three Arteries from Aorta with Autologous Venous Tissue, Open Approach (ICD-10-PCS; 2020-04-08)
PROC: 06BQ4ZZ Excision of Left Saphenous Vein, Percutaneous Endoscopic Approach (ICD-10-PCS; 2020-04-08)
PROC: 03HY32Z Insertion of Monitoring Device into Upper Artery, Percutaneous Approach (ICD-10-PCS; 2020-04-08)
PROC: 4A133J1 Monitoring of Arterial Pulse, Peripheral, Percutaneous Approach (ICD-10-PCS; 2020-04-08)
PROC: 5A1221Z Performance of Cardiac Output, Continuous (ICD-10-PCS; 2020-04-08)
PROC: 30233R1 Transfusion of Nonautologous Platelets into Peripheral Vein, Percutaneous Approach (ICD-10-PCS; 2020-04-08)
PROC: 02100Z9 Bypass Coronary Artery, One Artery from Left Internal Mammary, Open Approach (ICD-10-PCS; 2020-04-08)
DX: I25.10 Atherosclerotic heart disease of native coronary artery without angina pectoris (principal); U07.1 COVID-19; I10 Essential (primary) hypertension; E78.5 Hyperlipidemia, unspecified; I95.9 Hypotension, unspecified; I25.41 Coronary artery aneurysm; I34.0 Nonrheumatic mitral (valve) insufficiency; D64.9 Anemia, unspecified; Z79.82 Long term (current) use of aspirin; Z79.01 Long term (current) use of anticoagulants; Z79.899 Other long term (current) drug therapy; Z87.891 Personal history of nicotine dependence; Z90.710 Acquired absence of both cervix and uterus; Z72.89 Other problems related to lifestyle
CPT/HCPCS: 10078; 10081; 10797; 47000; 47001; 47002; 47297; 50010; 50249; 50409; 50456; 50498; 50668; 51301; 52131; 52259; 52287; 52314; 53327; 54118; 55415; 56455; 56524; 56525; 56526; 56527; 56528; 56531; 56534; 56668; 56719; 56760; 56898; 57093; 57116; 57167; 62110; 62950; 65003; 65047; 65090; 65120; 65135; 83006

== ENCOUNTER → 2020-10-01 | Outpatient (CLI) | payer OTHER ==
[~2020-10-01] MED LIST: ASA81BEC PO; FISH OIL 1,001000 M2 PO; KLOR-CON 10 ER10 MEQ PO; MAGNESIUM250 M1 PO; PLAVIX 75 MG TA75 MG PO; VITAMIN D310 MC2 PO
== END ==
LOC: SJCVCIMAG 09:37
PROVIDERS: ATTEND Internal Medicine Cardiovascular Disease
DX: I65.22 Occlusion and stenosis of left carotid artery (principal); R06.00 Dyspnea, unspecified; R53.83 Other fatigue; I25.119 Atherosclerotic heart disease of native coronary artery with unspecified angina pectoris; Z95.1 Presence of aortocoronary bypass graft; Z95.828 Presence of other vascular implants and grafts; Z79.82 Long term (current) use of aspirin; Z79.899 Other long term (current) drug therapy; Z86.73 Personal history of transient ischemic attack (TIA), and cerebral infarction without residual deficits